=== PATIENT | female | born 1950 | race Two or more races ===

== ENCOUNTER 2022-03-27 09:42 | Emergency (ER) | payer OTHER, MEDICAID ==
[~2022-03-27] VITALS: Ht 157.5 cm; Wt 70.0 kg
[2022-03-27] MEDS ORDERED: KETOROLAC TROMETH 30 MG/ML 1ML VIAL IM ONE (14:00)
[2022-03-27 14:09] VITALS: BP 125/53
[2022-03-27] MEDS ORDERED: PRED20TA2 PO (14:40)
[2022-03-27] MEDS ORDERED: ACET-1080 PO (14:40)
== END 2022-03-27 14:41 | disposition home or self-care (01) ==
LOC: ER 09:42
DX: S83.92XA Sprain of unspecified site of left knee, initial encounter (principal); M13.862 Other specified arthritis, left knee; X58.XXXA Exposure to other specified factors, initial encounter; Y93.89 Activity, other specified; Y92.89 Other specified places as the place of occurrence of the external cause; Y99.8 Other external cause status
CPT/HCPCS: 73562; 96372; 99283; J1885

== ENCOUNTER 2023-12-24 15:58 | Emergency (ER) | payer OTHER, MEDICAID ==
[~2023-12-24] VITALS: Ht 157.5 cm; Wt 69.8 kg
[~2023-12-24 15:58] MED LIST: ACET-1080 PO; PRED20TA2 PO
[2023-12-24 16:11] VITALS: BP 165/87; PULSE 71; RESP 16; O2SAT 97
== END 2023-12-24 22:18 | disposition home or self-care (01) ==
LOC: ER 15:58
DX: H26.9 Unspecified cataract (principal); R51.9 Headache, unspecified; I95.9 Hypotension, unspecified
CPT/HCPCS: 70450; 70480; 82962

== ENCOUNTER → 2024-01-01 | Outpatient (CLI) | payer OTHER, MEDICAID ==
[~2024-01-01] VITALS: Ht 127 cm; Wt 70.0 kg
[2024-01-01] MEDS: REGADENOSON 0.4 MG/5 ML SYRG IV ONE ×2 (09:21→09:29)
== END | disposition home or self-care (01) ==
LOC: XYW 08:14
PROVIDERS: ATTEND Internal Medicine
DX: Z01.810 Encounter for preprocedural cardiovascular examination (principal); I10 Essential (primary) hypertension; R00.1 Bradycardia, unspecified; I11.9 Hypertensive heart disease without heart failure; E78.00 Pure hypercholesterolemia, unspecified
CPT/HCPCS: 78452; 93017; A9500; J2785